=== PATIENT | female | born 1995 | race Caucasian/White ===

== ENCOUNTER → 2018-01-18 | Outpatient (CLI) | payer OTHER ==
[~2018-01-18] MED LIST: CIPR-255 PO; OXYC-57 PO; TRAMTAB5 PO
--- NOTE | 2018-01-18 12:19 | DIAGNOSTIC IMAGING REPORT ---
CAROTID DOPPLER NECK ART HISTORY: Mental status change RIGHT SIDE NUMBNESS AND WEAKESS,SPELL OF ALTERED COMPARISON: None. TECHNIQUE: Real-time, grayscale, and color Doppler sonography of the carotid arteries was performed. Imaging reviewed in the transverse and longitudinal planes. All measurements were calculated based on NASCET criteria. FINDINGS: Antegrade flow is seen in the bilateral vertebral arteries. The brachial pressures are hemodynamically similar. Minimal plaque formation bilaterally The peak systolic velocity within the right ICA is 81. The right systolic ratio is 0.8. The peak systolic velocity within the left ICA is 72. The left systolic ratio is 0.9. IMPRESSION: No hemodynamically significant stenosis seen within the carotid arteries. The above report was generated using voice recognition software. It may contain grammatical, syntax or spelling errors. Electronically signed by: Cody Olivia M.D. 01/18/2018 12:17 PM Dictated Date/Time: 01/18/2018 12:17 PM
== END | disposition home or self-care (01) ==
LOC: C.ULTR 10:22
PROVIDERS: ATTEND Internal Medicine Cardiovascular Disease
DX: R20.0 Anesthesia of skin (principal); R40.4 Transient alteration of awareness; R29.898 Other symptoms and signs involving the musculoskeletal system

== ENCOUNTER → 2018-02-22 | Outpatient (CLI) | payer OTHER ==
--- NOTE | 2018-02-22 16:02 | ECHOCARDIOGRAM REPORT ---
*NOTICE TO RECEIVING REPUBLICAN AGENCY This information is strictly Confidential and protected under [place] law. [place] law prohibits you from making any further disclosure of this information unless further disclosure is expressly permitted by the written consent of the person to whom it pertains or is authorized by law. A general authorization for the release of medical or other information is not sufficient for this purpose. Hospital accepts no responsibility if the information is made available to any other person, INCLUDING THE PATIENT. Interpretation Summary * Name: ERIBERTO BENNETT Study Date: 02/22/2018 12:29 PM BP: 117/66 mmHg * Patient Location: [facility] HR: 67 * : 1995 (M/d/yyyy) Gender: Female Height: 67 in * Age: 23 yrs Ethnicity: CA Weight: 150 lb * Ordering Physician: Fiona Lazcano * Referring Physician: Fiona Lazcano PA-C * Performed By: Coty Stein RDCS * * Reason For Study: RIGHT SIDED WEAKNESS, NUMBNESS ON RIGHT SIDE * BSA: 1.8 m2 * Normal transthoracic echocardiogram. * -- Conclusions -- * Normal study. Procedure Details * A complete two-dimensional transthoracic echocardiogram was performed (2D, M-mode, Doppler and color flow Doppler). * A saline contrast injection was performed to assess for cardiac shunting. * The injection was performed through an intravenous line in the left arm. * The attending nurse who injected the saline contrast was TIN SHUKLA RN. * A total of 20 cc of agitated saline was given. Left Ventricle * The left ventricle is normal in size. * There is normal left ventricular wall thickness. * Ejection Fraction = 60-65%. * Left ventricular systolic function is normal. * No segmental left ventricular wall motion abnormalities are noted. * The left ventricular wall motion is normal. Right Ventricle * The right ventricular cavity size is normal (basal dimension <4.2 cm in right ventricular apical 4-chamber view). * The right ventricular systolic function is normal as assessed by tricuspid annular plane systolic excursion (TAPSE) (normal >1.5 cm). Atria * The left atrial size is normal. * Right atrial size is normal. * The interatrial septum is intact with no evidence for an atrial septal defect. * Injection of contrast documented no interatrial shunt. Mitral Valve * The mitral valve is normal in structure and function. Tricuspid Valve * The tricuspid valve is normal in structure and function. Aortic Valve * The aortic valve is normal in structure and function. Pulmonic Valve * The pulmonary valve is not well seen, but the Doppler examination is normal without significant regurgitation or stenosis. Great Vessels * The aortic root is normal size. Pericardium/Pleural * There is no pericardial effusion. Left Ventricular Diastolic Function * Pulse wave TDI of the anterior and posterior mitral annulas demonstrates normal LV relaxation MMode 2D Measurements and Calculations IVSd 1.0 cm IVSs 1.5 cm LVIDd 4.1 cm LVIDs 2.7 cm LVPWd 1.0 cm LVPWs 1.4 cm IVS/LVPW 1.0 FS 33.4 % EDV(Teich) 72.1 ml ESV(Teich) 27.0 ml EF(Teich) 62.6 % EDV(cubed) 66.5 ml ESV(cubed) 19.7 ml EF(cubed) 70.4 % % IVS thick 44.6 % % LVPW thick 36.7 % LV mass(C)d 135.3 grams LV mass(C)dI 75.6 grams/m\S\2 LV mass(C)s 130.2 grams LV mass(C)sI 72.8 grams/m\S\2 SV(Teich) 45.2 ml SI(Teich) 25.2 ml/m\S\2 SV(cubed) 46.8 ml SI(cubed) 26.2 ml/m\S\2 Ao root diam 2.8 cm Ao root area 6.4 cm\S\2 LA dimension 3.1 cm LA/Ao 1.1 LVAd ap4 23.0 cm\S\2 LVLd ap4 8.2 cm EDV(MOD-sp4) 52.7 ml EDV(sp4-el) 54.5 ml LVAs ap4 12.2 cm\S\2 LVLs ap4 6.7 cm ESV(MOD-sp4) 19.1 ml ESV(sp4-el) 18.7 ml EF(MOD-sp4) 63.8 % EF(sp4-el) 65.8 % LVAd ap2 30.1 cm\S\2 LVLd ap2 8.7 cm EDV(MOD-sp2) 85.7 ml EDV(sp2-el) 88.2 ml LVAs ap2 15.4 cm\S\2 LVLs ap2 6.9 cm ESV(MOD-sp2) 30.1 ml ESV(sp2-el) 29.2 ml EF(MOD-sp2) 64.9 % EF(sp2-el) 67.0 % LVLd %diff 5.5 % EDV(MOD-bp) 68.9 ml LVLs %diff 3.0 % ESV(MOD-bp) 24.4 ml EF(MOD-bp) 64.6 % SV(MOD-sp4) 33.6 ml SI(MOD-sp4) 18.8 ml/m\S\2 SV(MOD-sp2) 55.7 ml SI(MOD-sp2) 31.1 ml/m\S\2 SV(MOD-bp) 44.5 ml SI(MOD-bp) 24.9 ml/m\S\2 SV(sp4-el) 35.9 ml SI(sp4-el) 20.0 ml/m\S\2 SV(sp2-el) 59.1 ml SI(sp2-el) 33.0 ml/m\S\2 Doppler Measurements and Calculations MV E max sharmin 80.4 cm/sec MV A max sharmin 48.3 cm/sec MV E/A 1.7 MV dec time 0.26 sec Ao V2 max 122.4 cm/sec Ao max PG 6.0 mmHg Ao max PG (full) 2.4 mmHg LV V1 max PG 3.6 mmHg LV V1 max 95.4 cm/sec
== END | disposition home or self-care (01) ==
LOC: C.CPL 12:25
PROVIDERS: ATTEND Internal Medicine
DX: R29.898 Other symptoms and signs involving the musculoskeletal system (principal); R20.0 Anesthesia of skin